=== PATIENT | female | born 1955 | race Caucasian/White ===

== ENCOUNTER 2018-11-28 17:51 | Emergency (ER) | payer SELFPAY ==
--- NOTE | 2018-11-28 18:24 | ED ---
Upper Extremity Pain - HPI Summary HPI Summary: This patient is a 63 year old F brought to ED by EMS with a chief complaint of right elbow pain since 1700 today. Patient was having a water balloon fight with children and slipped on wet grass and landed on right elbow. Patient was given fentanyl IVP, NS IVPB, and splinting by EMS LEASING MACHINE TENDER. The patient rates the pain 9/10 in severity. Symptoms aggravated by movement. Symptoms alleviated by nothing. Patient denies fever. Patient drinks alcohol and smokes tobacco but does not use substances. - History of Current Complaint Chief Complaint: EDExtremityUpper Stated Complaint: RT ELBOW INJURY PER EMS Time Seen by Provider: 11/28/18 18:07 Hx Obtained From: Patient, EMS Mechanism Of Injury: Fall From A Standing Position Onset/Duration: Started Hours Ago - 1699 today, Traumatic, Still Present Timing: Constant Severity Initially: Severe Severity Currently: Severe Pain Location: Elbow - Right Aggravating Factor(s): Movement Alleviating Factor(s): Nothing Associated Signs & Symptoms: Negative: Fever - Allergies/Home Medications Allergies/Adverse Reactions: Allergies Allergy/AdvReac Type Severity Reaction Status Date / Time No Known Drug Allergies Allergy Unknown Verified 11/28/18 20:15 Reaction Details Home Medications: Home Medications NK [No Home Medications Reported] 11/28/18 [History Confirmed 11/28/18] PMH/Surg Hx/FS Hx/Imm Hx Endocrine/Hematology History: Denies: Hx Diabetes Cardiovascular History: Denies: Hx Hypertension - Surgical History Surgery Procedure, Year, and Place: Ovarian cyst removal Infectious Disease History: No Infectious Disease History: Denies: Traveled Outside the [place] in Last 30 Days - Family History Known Family History: Positive: Cardiac Disease, Hypertension, Diabetes, Other - HLD, cancer - Social History Alcohol Use: Occasionally Alcohol 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 GENERAL: Patient is a well-developed and nourished female who is lying comfortable in the stretcher. Patient is not in any acute respiratory distress. HEAD AND FACE: No signs of trauma. No ecchymosis, hematomas or skull depressions. No sinus tenderness. EYES: PERRLA, EOMI x 2, No injected conjunctiva, no nystagmus. EARS: Hearing grossly intact. Ear canals and tympanic membranes are within normal limits. MOUTH: Oropharynx within normal limits. NECK: Supple, trachea is midline, no adenopathy, no JVD, no carotid bruit, no c- spine tenderness, neck with full ROM. CHEST: Symmetric, no tenderness at palpation LUNGS: Clear to auscultation bilaterally. No wheezing or crackles. CVS: Regular rate and rhythm, S1 and S2 present, no murmurs or gallops appreciated. ABDOMEN: Soft, non-tender. No signs of distention. No rebound no guarding, and no masses palpated. Bowel sounds are normal. EXTREMITIES: deformity in right elbow, RUE is neurovascularly intact with good capillary refill and sensation NEURO: Alert and oriented x 3. No acute neurological deficits. Speech is normal and follows commands. SKIN: Dry and warm. Triage Information Reviewed: Yes Vital Signs On Initial Exam: Initial Vitals Temp Pulse Resp BP Pulse Ox 98.2 F 79 17 125/75 98 11/28/18 18:02 11/28/18 18:02 11/28/18 18:02 11/28/18 18:02 11/28/18 18:02 Vital Signs Reviewed: Yes Procedures - Joint Reduction Right Joint Reduction Site: elbow (R) Conscious Sedation: Yes Reduction Attempts: 1 Post Joint Reduction Film: joint reduced Diagnostics - Vital Signs Vital Signs Temp Pulse Resp BP Pulse Ox 11/28/18 18:02 98.2 F 79 17 125/75 98 - Laboratory Lab Statement: Any lab studies that have been ordered have been reviewed, and results considered in the medical decision making process. - Radiology Right elbow XR Radiology Interpretation Completed By: ED Physician Summary of Radiographic Findings: Posterior dislocation of right elbow. Pending official radiology report. Second right elbow XR Radiology Interpretation Completed By: ED Physician Summary of Radiographic Findings: Reduction of the posterior elbow dislocation. Pending official radiology report. Re-Evaluation - Re-Evaluation First Eval Re-Evaluation Time: 19:13 Comment: Discussed XR results with patient. Patient will need conscious sedation and joint reduction to put her dislocated elbow back in place. Patient understands and agrees with this plan. Second Eval Re-Evaluation Time: 20:43 Change: Improved Comment: Patient reports feeling better after joint reduction. Patient will be discharged home with dx of elbow dislocation. Patient understands and agrees with this plan. Course/Dx - Course Assessment/Plan: This patient is a 63 year old F brought to ED by EMS with a chief complaint of right elbow pain since 1700 today. Patient was having a water balloon fight with children and slipped on wet grass and landed on right elbow. Patient was given fentanyl IVP, NS IVPB, and splinting by EMS LEASING MACHINE TENDER. The patient rates the pain 9/10 in severity. Symptoms aggravated by movement. Symptoms alleviated by nothing. Patient denies fever. Patient drinks alcohol and smokes tobacco but does not use substances. Right elbow x-ray impression: Posterior right elbow dislocation. I discussed the findings and test results with the patient and the need to do a reduction of the dislocation. I also discussed the benefits and risk of conscious sedation and she agreed. The consent form is in the chart. PROCEDURE NOTE: Procedural Sedation. Indications : Posterior dislocation of the right elbow. [place] Protocol: a timeout was performed and the correct patient and site were verified. signed the consent. Consent: The risks and benefits of monitored anesthesia care, including the risk of aspiration, deep sedation requiring airway management including possible intubation, nausea and vomiting and the risks of not performing the procedure, including severe pain and inability to complete the procedure, were all discussed with the patient. The alternatives of performing the procedure, including local anesthesia and IV analgesia, also discussed. The patient has a ride home available. ASA Class: II-mild systemic disease. Pre- anesthesia evaluation, including history, exam, and informed consent is documented in the ED note above. Monitoring: Continuous monitoring of heart rate, respiratory rate, pulse oximetry and ETCO2. Supplemental oxygen prior to and during procedure via nasal cannula. Resuscitation equipment available at the bedside during sedation. The patient received Versed and Fentanyl and dosages were recorded on the sedation form. The patient has recovered from the sedation without complication or incident. Patient returned to pre-sedation level of awareness. The monitoring was discontinued at this time. Post- anesthesia evaluation: patient is alert and oriented x 3. She is back to base line. Respiratory function, cardiovascular function, temperature, and mental status did return to pre-anesthetic state. Pain is controlled. Patient will be discharged home with dx of right elbow dislocation. Patient understands and agrees with this plan. - Diagnoses Provider Diagnoses: Dislocation of right elbow Discharge - Sign-Out/Discharge Documenting (check all that apply): Patient Departure - Discharge Patient Received Moderate/Deep Sedation with Procedure: Yes - Discharge Plan Condition: Stable Disposition: HOME Patient Education Materials: Elbow Dislocation (ED), Procedural Sedation (ED) Referrals: [facility] [Outside] - 3 Days Additional Instructions: FOLLOW UP WITH YOUR PRIMARY CARE PROVIDER WITHIN ONE WEEK. RETURN TO THE ED FOR ANY WORSENING OR NEW SYMPTOMS. - Billing Disposition and Condition Condition: STABLE Disposition: Home - Attestation Statements Document Initiated by Joseibe: Yes Documenting Scribe: Tony Ayala Provider For Whom Yari is Documenting (Include Credential): Cr Bueno MD Scribe Attestation: Tony Santamaria, scribed for Cr Bueno MD on 11/29/18 at 1015. Scribe Documentation Reviewed: Yes Provider Attestation: The documentation as recorded by the Tony garcia accurately reflects the service I personally performed and the decisions made by me, Cr Bueno MD Status of Scribe Document: Viewed
[2018-11-28] MEDS ORDERED: Morphine 4 MG/ML VIAL (1 ml) 4 MG/ML VIAL IV ONE (19:10)
[2018-11-28] MEDS ORDERED: fentaNYL* 50 MCG/ML 2 ML VIAL (100 MCG VIAL) ONE (19:17)
[2018-11-28] MEDS ORDERED: Midazolam* 1 MG/ML 5 ML VIAL (5 MG) ONE ×2 (19:19→19:20)
[2018-11-28 20:26] VITALS: BP 151/89
== END 2018-11-28 20:53 | disposition home or self-care (01) ==
LOC: ED 17:51
DX: S53.104A Unspecified dislocation of right ulnohumeral joint, initial encounter (principal); W01.0XXA Fall on same level from slipping, tripping and stumbling without subsequent striking against object, initial encounter; Y93.89 Activity, other specified; Y92.096 Garden or yard of other non-institutional residence as the place of occurrence of the external cause; F17.200 Nicotine dependence, unspecified, uncomplicated
CPT/HCPCS: 24605; 96374; 99156; 99285; J2250; J2270; J3010